=== PATIENT | female | born 1990 | race Caucasian/White ===

== ENCOUNTER 2017-01-07 12:19 | Emergency (ER) | payer OTHER ==
[2017-01-07] MEDS ORDERED: Azithromycin 250 MG TAB ONE (12:56)
[2017-01-07] MEDS ORDERED: Dexamethasone 4 mg/ml Vial ONE (12:56)
== END 2017-01-07 13:28 | disposition home or self-care (01) ==
LOC: ERS 12:19
DX: J40 Bronchitis, not specified as acute or chronic (principal); F17.210 Nicotine dependence, cigarettes, uncomplicated
CPT/HCPCS: 96372; J1100

== ENCOUNTER 2017-01-30 15:37 | Outpatient (CLI) | payer OTHER ==
--- NOTE | 2017-01-30 18:42 | RAD ---
THREE VIEWS LUMBOSACRAL SPINE 01/30/17 COMPARISON: CT of the chest, abdomen and pelvis 05/04/16. HISTORY: Closed fracture of the second lumbar vertebral body. FINDINGS: Three views lumbosacral spine shows normal height and alignment of the vertebral bodies and intervert ebral discs without fracture or subluxation. No obvious fracture is seen. No degenerative changes are present. IMPRESSION: Unremarkable exam. POS: [facility]
== END 2017-01-30 15:38 | disposition home or self-care (01) ==
LOC: RAD 15:37
PROVIDERS: ATTEND Family Medicine
DX: S32.029D Unspecified fracture of second lumbar vertebra, subsequent encounter for fracture with routine healing (principal)
CPT/HCPCS: 72100